=== PATIENT | female | born 1975 | race Asian ===

== ENCOUNTER 2017-01-03 15:40 | Emergency (ER) | payer OTHER ==
[2017-01-03 15:57] VITALS: BP 130/76
--- NOTE | 2017-01-03 16:33 | UC ---
UC General HPI - HPI Summary HPI Summary: FOUR WEEKS AGO MAY HAVE TICK BITE ON LEFT HIP. FOUR DAYS OF HEADACHE, NECK PAIN , JOINT ACHES, FEVER. NO RASH. - History of Current Complaint Chief Complaint: UCGeneralIllness Stated Complaint: HEAD & NECK PAIN,FEVER,NUMB FINGERS Time Seen by Provider: 01/03/17 16:01 Hx Obtained From: Patient Onset/Duration: Gradual Onset, Lasting Weeks, Still Present Onset Severity: Mild Current Severity: None Associated Signs & Symptoms: Positive: Fever, Headache. Negative: Abdominal Pain, Back Pain, Cough, Dizziness, Diarrhea, Melena, Nausea, Syncope, SOB, Trauma, Vomiting, Wheezing, Weakness - Allergy/Home Medications Allergies/Adverse Reactions: Allergies Allergy/AdvReac Type Severity Reaction Status Date / Time No Known Allergies Allergy Verified 01/03/17 15:51 Home Medications: Home Medications Ibuprofen TAB* [Advil TAB*] 400 mg PO Q6H PRN 01/03/17 [History Confirmed ] PMH/Surg Hx/FS Hx/Imm Hx Previously Healthy: Yes - Surgical History Surgical History: None - Family History Known Family History: Negative: Blood Disorder - Social History Occupation: Employed Full-time Lives: With Family Alcohol Use: Rare Substance Use Type: None Smoking Status (MU): Never Smoked Tobacco Review of Systems Constitutional: Fever Skin: Other - SMALL 0.5CM X 0.5CM ERRYTHEMATOUS AREA WITH POSSIBLE TICK FRAGMENTS IN CENTER Eyes: Negative ENT: Negative Respiratory: Negative Cardiovascular: Negative Gastrointestinal: Negative Genitourinary: Negative Motor: Negative Neurovascular: Negative Musculoskeletal: Arthralgia, Myalgia Neurological: Negative Psychological: Negative All Other Systems Reviewed And Are Negative: Yes Physical Exam Triage Information Reviewed: Yes Appearance: Well-Appearing, No Pain Distress, Well-Nourished Vital Signs: Initial Vital Signs Temp 99.8 F 01/03/17 15:53 Pulse 83 01/03/17 15:53 Resp 16 01/03/17 15:53 BP 130/76 01/03/17 15:53 Pulse Ox 100 01/03/17 15:53 Vital Signs Reviewed: Yes Eye Exam: Normal ENT Exam: Normal ENT: Positive: Normal ENT inspection, TMs normal Dental Exam: Normal Neck exam: Normal Neck: Positive: Supple, Nontender Respiratory Exam: Normal Respiratory: Positive: Chest non-tender, Lungs clear, Normal breath sounds, No respiratory distress Cardiovascular Exam: Normal Cardiovascular: Positive: RRR, No Murmur Abdominal Exam: Normal Abdomen Description: Positive: Nontender, No Organomegaly Musculoskeletal Exam: Normal Musculoskeletal: Positive: Strength Intact, ROM Intact Neurological Exam: Normal Psychological Exam: Normal Skin: Positive: rashes - SMALL 0.5CM X 0.5CM ERRYTHEMATOUS AREA WITH POSSIBLE TICK FRAGMENTS IN CENTER Course/Dx - Differential Dx - Multi-Symptom Differential Diagnoses: Metabolic Abnormality, Sepsis Provider Diagnoses: POSSIBLE LYME DISEASE Discharge - Discharge Plan Condition: Stable Disposition: HOME Prescriptions: DOXYcycline CAP(*) [DOXYcycline 100MG CAP(*)] 100 mg PO BID #20 cap Patient Education Materials: Lyme Disease (ED), Tick Bite (ED) Referrals: Ness Herrera MD [Primary Care Provider] - Images Front/Back of Body, Lg (Kaufman): 1 - SMALL 0.5CM X 0.5CM ERRYTHEMATOUS AREA WITH POSSIBLE TICK FRAGMENTS IN CENTER
[2017-01-04 10:44] LABS: Hematocrit 39 % (35-47); Hemoglobin 12.5 g/dl (12.0-16.0); Mean Corpuscular HGB Conc 32 g/dl (31-36); Mean Corpuscular Hemoglobin 29 pg (27-31); Mean Corpuscular Volume 91 fL (80-97); Mean Platelet Volume 9 um3 (7.4-10.4); Red Blood Count 4.28 10^6/ul (4.0-5.4); Red Cell Distribution Width 14 % (10.5-15); White Blood Count 5.6 10^3/ul (3.5-10.8)
== END 2017-01-03 16:35 | disposition home or self-care (01) ==
LOC: UCEAST 15:40
DX: L53.9 Erythematous condition, unspecified (principal); R51 Headache; R50.9 Fever, unspecified; R20.0 Anesthesia of skin
CPT/HCPCS: 36415; 85025; 86618; 99212; G0463

== ENCOUNTER 2017-11-19 16:13 | Emergency (ER) | payer OTHER ==
[2017-11-19 16:32] VITALS: BP 140/85
--- NOTE | 2017-11-19 16:37 | UC ---
Lower Extremity/Ankle HPI - HPI Summary HPI Summary: 42 y/o female presents to the urgent care c/o left ankle pain and swelling s/p twisting it while moving some boxes about 30min ago. Pt states she can't bear weight and Pain is 8/10 w/ some numbness around the lateral side of ankle. Pt has not taking anything to alleviate symptoms. Pt denies calf pain, SOB, chest pain. abdominal pain, N/V/D. LMP: 11/06/2017 w/ regular menstrual cycles and not sexually active lately. - History of Current Complaint Chief Complaint: UCLowerExtremity Stated Complaint: ANKLE INJURY Time Seen by Provider: 11/19/17 16:35 Hx Obtained From: Patient Hx Last Menstrual Period: 11/06/17 ?: No Onset/Duration: Sudden Onset, Lasting Minutes - 30 min Severity Initially: Moderate Severity Currently: Moderate Pain Intensity: 8 Pain Scale Used: 0-10 Numeric Aggravating Factor(s): Standing, Ambulation Alleviating Factor(s): Rest Able to Bear Weight: No - Risk Factors Gout Risk Factors: Negative DVT Risk Factors: Negative Septic Arthritis Risk Factor: Negative - Allergies/Home Medications Allergies/Adverse Reactions: Allergies Allergy/AdvReac Type Severity Reaction Status Date / Time No Known Allergies Allergy Verified 11/19/17 16:32 PMH/Surg Hx/FS Hx/Imm Hx Previously Healthy: Yes - Pt denies PMHX - Surgical History Surgical History: None - Family History Known Family History: Positive: Unknown - Pt is adopted Negative: Blood Disorder - Social History Occupation: Employed Full-time Lives: With Family Alcohol Use: Rare Substance Use Type: None Smoking Status (MU): Never Smoked Tobacco Review of Systems Constitutional: Negative Skin: Bruising - and swellin gof the left alteral malleolus Eyes: Negative ENT: Negative Respiratory: Negative Cardiovascular: Negative Gastrointestinal: Negative Genitourinary: Negative Motor: Negative Neurovascular: Negative Musculoskeletal: Decreased ROM - left ankle s/p injury, Other: - left ankle pain s/p injury Neurological: Negative Psychological: Negative Is Patient Immunocompromised?: No All Other Systems Reviewed And Are Negative: Yes Physical Exam - Summary Physical Exam Summary: Vital Signs Reviewed: Yes General: well developed, well nourished female, sitting in the examining table w /o any apparent distress Eyes: Positive: Conjunctiva Clear - PERRLA, EOMI, ENT: Positive: Normal ENT inspection, Hearing grossly normal, Pharynx normal, TMs normal Neck: Positive: Supple, Nontender, No Lymphadenopathy Respiratory: Positive: Chest non-tender, Lungs clear, Normal breath sounds, No respiratory distress Cardiovascular: Positive: RRR, No Murmur, Pulses Normal, Brisk Capillary Refill Abdomen Description: Positive: Nontender, No Organomegaly, Soft. Negative: CVA Tenderness (R), CVA Tenderness (L) Bowel Sounds: Positive: Present Musculoskeletal: - Ankle: Pt is unable to bear weight . The L ankle is without obvious asymmetry or deformity when compared to the R ankle. Decreased ROM due to pain. Moderate swelling at the lateral malleolus, with tenderness to palpation. Mild ecchymosis and bruising observed over the lateral malleolus. No tenderness to palpation over the medial malleolus , no swelling observed. Talar tilt test is negative for ligament laxity to valgus or varus stress. anterior drawer test Unable to perform. Pt is very apprehensive. . Positive sensation over the LF foot and Rt ankle, positive pulses, capillary refill intact Neurological Exam: Normal Psychological Exam: Normal Skin: warm and dry Triage Information Reviewed: Yes Vital Signs: Initial Vital Signs Temp 98.3 F 11/19/17 16:21 Pulse 96 11/19/17 16:21 Resp 18 11/19/17 16:21 BP 140/85 11/19/17 16:21 Pulse Ox 100 11/19/17 16:21 Lower Extremity Course/Dx - Course Course Of Treatment: 42 y/o female presents to the urgent care c/o left ankle pain and swelling s/p twisting it while moving some boxes about 30min ago. Pt states she can't bear weight and Pain is 8/10 w/ some numbness around the lateral side of ankle. Pt has not taking anything to alleviate symptoms. Pt denies calf pain, SOB, chest pain. abdominal pain, N/V/D. LMP: 11/06/2017 w/ regular menstrual cycles and not sexually active lately.Hx obtained. Pt given Ibuprofen PO and ice in the clinic to alleviate symptoms. LF ankle X-ray ordered, Impression: Non displaced left fibula malleolar fracture. I discussed Pt's symptoms w/ Dr Nair and she recommended Stirrup splint and f/u w/ Orthopedic Dr. Pt immobilized with Ortho glass stirrup,. There was no neurovascular compromise after splint application; the splint was in good alignment and the pt had good sensation and capillary refill at the time of discharge. Pt given crutches to avoid weight bearing, Rx Ibuprofen PO to decrease swelling and pain. Pt advised RICE, take Ibuprofen PO for pain and to f/u with Orthopedic DR Rothman in 2-3 days for further treatment. Pt's BP is elevated today advised to decrease salt in diet, monitor BP and f/u with PCP for further management. Pt understood and agreed and left the clinic ambulating w/ the help of crutches. - Differential Dx/Diagnosis Differential Diagnosis/HQI/PQRI: Contusion, Dislocation, Fracture (Closed), Sprain, Strain, Tendonitis Provider Diagnoses: 1- Non displaced left fibula malleolar fracture. 2-Left ankle pain and swelling. 3- elevated BP w/o Hx of HTN Discharge - Sign-Out/Discharge Documenting (check all that apply): Discharge/Admit/Transfer - D/c home - Discharge Plan Condition: Stable Disposition: HOME Prescriptions: Ibuprofen TAB* [Motrin TAB* 800 MG] 800 mg PO Q6H PRN #30 tab PRN Reason: Pain Patient Education Materials: Ankle Fracture (ED), Low-Sodium Diet (ED) Referrals: Nikhil Rothman MD [Medical Doctor] - 2 Days Ness Herrera MD [Primary Care Provider] - 2 Days Additional Instructions: 1-Please take medications as directed to alleviate pain and swelling. 2-Please keep your ankle immobilized with the Ortho glass splint and keep it elevated at night time. Avoid weight bearing using the crutches. 3- Please f/u with Orthopedic Dr Rothman in 2-3 days for further evaluation and treatment. 4-Your BP is elevated today. please decrease salt in your diet, monitor BP and if it continues to be elevated please f/u with your PCP for further management - Billing Disposition and Condition Condition: STABLE Disposition: HOME
[2017-11-19] MEDS ORDERED: Ibuprofen TAB* 400 MG PO ONE (16:44)
--- NOTE | 2017-11-19 17:25 | RAD ---
INDICATION: Left ankle pain after a fall down stairs COMPARISON: None. TECHNIQUE: 3 views of the left ankle were obtained. FINDINGS: There is a nondisplaced horizontally oriented lucent line at the distal left fibular malleolus consistent with a nondisplaced fracture. The remaining visualized bones are intact and appropriately aligned. The ankle parties does not appear asymmetrically widened.. IMPRESSION: NONDISPLACED LEFT FIBULAR MALLEOLUS FRACTURE.
== END 2017-11-19 18:27 | disposition home or self-care (01) ==
LOC: UCEAST 16:13
DX: S82.62XA Displaced fracture of lateral malleolus of left fibula, initial encounter for closed fracture (principal); X50.0XXA Overexertion from strenuous movement or load, initial encounter; Y93.9 Activity, unspecified; Y92.9 Unspecified place or not applicable
CPT/HCPCS: 99213; A9270-GY; G0463